=== PATIENT | male | born 1980 | race African-American/Black ===

== ENCOUNTER 2019-10-19 09:28 | Emergency (ER) | payer OTHER ==
[~2019-10-19] VITALS: Ht 175.3 cm; Wt 72.6 kg
[2019-10-19 09:34] VITALS: BP 134/81
--- NOTE | 2019-10-19 09:45 | NUR ---
PT. VERBALIZED UNDERSTANDING OF AFTERCARE INSTRUCTIONS.Patient discharged to home in stable condition. Written and verbal after care instructions given. Patient verbalizes understanding of instruction.
== END 2019-10-19 09:45 | disposition home or self-care (01) ==
LOC: ER 09:33
DX: B07.0 Plantar wart (principal)

== ENCOUNTER 2019-11-11 08:54 | Emergency (ER) | payer OTHER ==
[~2019-11-11] VITALS: Ht 175.3 cm; Wt 74.8 kg
--- NOTE | 2019-11-11 08:55 | NUR ---
[id number], c/o left plantar foot pain x 4 months. awaiting md for eval.
--- NOTE | 2019-11-11 09:05 | NUR ---
Dr Ruvalcaba at [facility] for eval.
--- NOTE | 2019-11-11 09:20 | NUR ---
Patient discharged to home in stable condition. Written and verbal after care instructions given. Patient verbalizes understanding of instruction.
[2019-11-11 09:21] VITALS: BP 128/83
== END 2019-11-11 09:22 | disposition home or self-care (01) ==
LOC: ER 08:54
DX: B07.0 Plantar wart (principal)